=== PATIENT | female | born 1990 | race Caucasian/White ===

== ENCOUNTER 2016-10-18 04:44 | Emergency (ER) | payer OTHER ==
[~2016-10-18] VITALS: Ht 165.1 cm; Wt 70.0 kg
[2016-10-18 04:49] VITALS: BP 137/70; PULSE 76; RESP 16; TEMP 97.7
[2016-10-18] MEDS ORDERED: IBUP800T23 PO (05:41)
--- NOTE | 2016-10-18 05:41 | PD ---
HPI Chief Complaint: Injury Time Seen by Provider: 05:36 Travel History International Travel<30 days: No Contact w/Intl Traveler<30days: No Traveled to known affect area: No History of Present Illness HPI 26-year-old white female presents to emergency Department with complaints of left ankle pain. She states that she was [place] a [place]ampoline park jumping on a trampoline when she injured her left ankle yesterday evening. She states that she felt that she had come down and it made a crunching sound. Since then she has had decreased ability to bear weight. She states the pain is in the anterior aspect of her ankle. She denies any medial lateral pain. She denies any sensory changes. No other injuries. She states the pain is sharp and moderate in intensity. Worse with attempting to weight-bear some relief with elevation. PFSH Past Medical History Medical History: Denies Significant Hx Tetanus Vaccination: < 5 Years ?: Not LMP: 3 WKS AGO Past Surgical History Narrative Surgical Ventral hernia repair Social History Alcohol Use: Yes Tobacco Use: No Substance Use: No Allergies-Medications (Allergen,Severity, Reaction): Coded Allergies: Oxycodone (Verified Allergy, Intermediate, VOMITING, 10/18/16) Penicillin (Verified Allergy, Intermediate, VOMIT, 10/18/16) Reported Meds & Prescriptions Reported Meds & Active Scripts Active No Active Prescriptions or Reported Medications Review of Systems Except as stated in HPI: all other systems reviewed are Neg Musculoskeletal: Positive: Arthralgias, Limited ROM, Edema, Pain, No: Myalgias , Weakness, Cramping Physical Exam Narrative GENERAL: This is a well-nourished, well-developed patient, in no apparent distress. SKIN: No rashes, ecchymoses or lesions. Warm and dry. HEAD: Atraumatic. Normocephalic. EYES: PERRL, EOMI, no discharge or injection. No scleral icterus. EARS: Clear NOSE: Nasal turbinates appear normal. THROAT: Mucosa pink and moist. Airway patent. NECK: Trachea midline. supple, moves head freely. LUNGS: Clear to auscultation. CV: Regular in rhythm. ABDOMEN: Soft nontender. EXT: No clubbing cyanosis or edema. Examination of the left lower extremity reveals tenderness to the anterior aspect of the ankle. There is no medial or lateral malleolus pain. No gross instability. No pain in the Achilles or heel. No pain in the distal forefoot or toes. No pain in the knee or hip. The right lower extremity is unremarkable. The upper extremities unremarkable. Data Data Last Documented VS Vital Signs Date Time Temp Pulse Resp B/P Pulse Ox O2 Delivery O2 Flow Rate FiO2 10/18/16 04:49 97.7 76 16 137/70 Room Air Orders Ankle, Complete ([id number]) (10/18/16 05:15) Ice/Cold Pack (10/18/16 05:15) Splint Or Brace Apply/Monitor (10/18/16 05:15) Crutches (10/18/16 05:15) MDM Medical Decision Making Medical Screen Exam Complete: Yes Emergency Medical Condition: Yes Medical Record Reviewed: Yes Interpretation(s) Left ankle: Negative for bony injury Differential Diagnosis MDM: High Differential diagnoses: Fracture, sprain, strain, dislocation, contusion, neurovascular injury Narrative Course X-ray of the left ankle is negative for bony injury. Patient's given Motrin 800 mg by mouth, Krystian wrap and crutches. This is left ankle sprain Diagnosis Primary Impression: Left ankle sprain Patient Instructions: General Instructions Departure Forms: Tests/Procedures, Work Release Special Instructions: No work or school 2 days. Additional Instructions: Rest. Elevation. Ice packs for the next 3 days. Krystian wrap and crutches. No weight-bearing and then progress to weight-bearing as tolerated. Medications as directed Follow-up with an orthopedist or your doctor in one week. Return to the ER if any problems Med/Other Pt SpecificInfo: Prescription(s) given Scripts No Active Prescriptions or Reported Meds Disposition: 01 DISCHARGE HOME Condition: Deejay Burch Oct 18, 2016 05:41
--- NOTE | 2016-10-18 05:46 | RADRPT ---
EXAM DATE/TIME: 10/18/2016 05:30 CORRECTION Corrected on: November 16, 2016; Corrected header This report includes an Addendum and supersedes previous reports for this exam. [facility] COMPARISON: No previous studies available for comparison. INDICATIONS : Left ankle pain from jumping on a trampoline. MEDICAL HISTORY : None. SURGICAL HISTORY : None. ENCOUNTER: Initial ACUITY: 1 day PAIN SCORE: 8/10 LOCATION: Left Ankle FINDINGS: Three view exam was performed of the right ankle. The bony structures are in normal alignment. No e vidence of fracture, dislocation, or soft tissue swelling. The ankle mortise is intact. No radiopaq ue foreign bodies are seen. Bony mineralization is normal. CONCLUSION: Unremarkable examination of the right ankle. Nicanor Mckeon MD on October 18, 2016 at 5:45 Board Certified Radiologist. This report was verified electronically. ADDENDUM: Please note, the above study refers to the left ankle, not the right. Marty Mora MD on November 02, 2016 at 14:36 Board Certified Radiologist. This report was verified electronically. on November 16, 2016 at 16:26 Board Certified Radiologist. This report was verified electronically.
== END 2016-10-18 06:45 | disposition home or self-care (01) ==
LOC: NEPB 04:44
DX: S93.402A Sprain of unspecified ligament of left ankle, initial encounter (principal); X50.1XXA Overexertion from prolonged static or awkward postures, initial encounter; Y93.44 Activity, trampolining; Y92.39 Other specified sports and athletic area as the place of occurrence of the external cause
CPT/HCPCS: 73610; 99283; E0113